=== PATIENT | female | born 1945 | race African-American/Black ===

== ENCOUNTER 2019-03-28 13:18 | Inpatient (IN) | payer OTHER ==
[~2019-03-28] VITALS: Ht 165.1 cm; Wt 79.8 kg
[~2019-03-28 13:18] MED LIST: AMARYL2 MG PO; AMBIEN 10 MG TA10 MG PO; ASPIR 8181 MG PO; CALTRATE 600 +1 EAC1 PO; COZAAR 50 MG TA50 M2 PO; CRESTOR10 MG PO; CRESTOR20 MG PO; DILTIAZEM 24HR120 M2 PO; IMDUR30 MG PO; ISORDIL10 MG PO; LASIX 20 MG TAB20 MG PO; LOSARTAN-HCTZ1 EAC1 PO; NITROGLYCERIN0.4 MG SUBLING; PANTOPRAZOLE SO40 M1 PO; VALACYCLOVIR500 MG PO; VITAMIN B-12500 MCG PO; VITAMIN B12-FO1 EAC1 PO; VITAMIN D1000 UNI2 PO
[2019-03-28 13:22] VITALS: BP 183/127
[2019-03-28 14:08] LABS: URINE BILIRUBIN NEGATIVE (Negative); URINE BLOOD NEGATIVE (Negative); URINE CLARITY CLEAR; URINE COLOR YELLOW; URINE GLUCOSE-RANDOM* 3+ (Negative); URINE KETONES NEGATIVE (Negative); URINE LEUKOCYTES NEGATIVE (Negative); URINE NITRITE NEGATIVE (Negative); URINE PROTEIN (DIPSTICK) NEGATIVE (Negative); URINE UROBILINOGEN 0.2 E.U./dl (0.2-1.0)
[2019-03-28 14:14] LABS: ABSOLUTE NEUTROPHILS 9.5 thou/uL (1.4-8.2); BASOPHILS 0.3 % (0.0-2.0); EOSINOPHILS 0.2 % (0.0-3.0); HEMATOCRIT 43.4 % (37.0-47.0); HEMOGLOBIN 13.9 gm/dL (12.0-15.0); LYMPHOCYTES 11.2 % (24.0-44.0); MCH 29.3 pg (26.0-34.0); MCV 91.6 fL (80.0-100.0); MONOCYTES 5.9 % (1.0-8.0); PLATELET COUNT 216 thou/uL (150-400); POLYS 82.4 % (36.0-66.0); RBC 4.74 mil/uL (4.20-5.00); WBC 11.5 thou/uL (4.0-11.0)
[2019-03-28 14:15] LABS: CALCIUM 9.8 mg/dL (8.5-10.1); CREATININE 1.1 mg/dL (0.6-1.0); POTASSIUM 3.4 mmol/L (3.5-5.1)
[2019-03-28 14:21] LABS: ALBUMIN 4.3 g/dL (3.4-5.0); TOTAL BILIRUBIN 0.5 mg/dL (<0.1-1.0)
[2019-03-28] MEDS ORDERED: POTASSIUM20 PO (15:56)
[2019-03-28] MEDS ORDERED: HYDROCHLOROTHIA25 M2 PO (15:57)
[2019-03-28] MEDS ORDERED: ZETIA10 MG PO (15:57)
[2019-03-28] MEDS ORDERED: JARDIANCE10 MG PO (15:58)
[2019-03-28] MEDS ORDERED: PLAVIX 75 MG TA75 M1 PO (15:59)
[2019-03-28 17:56] VITALS: BP 183/127
[2019-03-28 19:22] VITALS: BP 130/63
[2019-03-28 19:26] VITALS: BP 146/83
[2019-03-28] MEDS ORDERED: PROTONIX40 M1 PO (19:44)
[2019-03-28] MEDS ORDERED: VITAMINC500 PO (19:48)
[2019-03-29] VITALS: BP 137/66
--- NOTE | 2019-03-29 01:33 | NUR ---
ASSUMED CARE OF PT AT 1930HRS. PT IS AOX4 AND WAS ORIENTED TO THE UNIT AND THE ROOM. PT WAS ABLE TO ANSWER ALL ADMISSION RELATED QUESTIONS. PT HAS A STEADY GAIT AND IS UP AD IVONE. FAMILY WAS AT BEDSIDE BRIEFLY. ABX TREATMENT CONTINUED. VSS AND NO S/S OF ACUTE DISTRESS. WILL CONTINUE TO MONITOR.
--- NOTE | 2019-03-29 04:13 | NUR ---
THE NIGHT PROGRESSED, PT WAS ABLE TO SLEEP PART OF THE SHIFT. VS REMAINED STABLE. NO S/S OF ACUTE DISTRESS. ABX TREATMENT CONTINUED. WILL CONTINUE TO MONITOR.
[2019-03-29 05:30] VITALS: BP 137/60
[2019-03-29 05:52] LABS: HEMATOCRIT 39.2 % (37.0-47.0); HEMOGLOBIN 12.9 gm/dL (12.0-15.0); MCHC 32.9 g/dL (28.0-37.0); MCV 91.1 fL (80.0-100.0); RBC 4.3 mil/uL (4.20-5.00); RDW 15.2 % (10.5-14.5)
[2019-03-29 06:10] LABS: CALCIUM 8.9 mg/dL (8.5-10.1); CREATININE 1.1 mg/dL (0.6-1.0); POTASSIUM 3.1 mmol/L (3.5-5.1)
[2019-03-29 08:35] VITALS: BP 133/64
[2019-03-29 14:39] VITALS: BP 140/62
--- NOTE | 2019-03-29 14:46 | NUR ---
INITIAL ASSESSMENT: Received consult. SW reviewed chart and spoke with nursing and attending physician. Pt was admitted from home due to aspiration pneumonia. Pt had colonoscopy at [facility]. Awaiting cultures at this time. Pt is on IV abx. SW met with pt at bedside. Introduced role of SW. Pt is alert/orientated x 4. Pt reports she lives at home. Prior to admission, pt was independent with ADLs. No use of DME. No hx of services or SNF/Rehab. Pt's PCP is Dr. Timmy Shah. Pt's GI physician at [facility] is Dr. Cristina Adkins. Discharge plan is for pt to return home when medically stable. Pt denies having any discharge needs at this time. SW is following to assist as needed with discharge planning.
--- NOTE | 2019-03-29 15:03 | NUR ---
PT A&OX4, VSS, DENIES PAIN. LUNGS CLEAR, NO COUGH, DENIES N/V/D. PATIENT TOOK SHOWER, RESTING IN BED AND RECLINER THROUGHOUT DAY. ANTIBIOTICS RAN ORDERED, WILL CONTINUE TO MONITOR.
[2019-03-29 19:50] VITALS: BP 150/69
--- NOTE | 2019-03-30 02:07 | NUR ---
ASSUMED CARE OF PT AT 1900HRS. PT IS AOX4 AND UP AD IVONE. PT CALLS FOR HELP NEEDED. ABX TREATMENT CONTINUED. NO COMPLAINTS OF PAIN OR NAUSEA THIS SHIFT. PT WAS ABLE TO GET COMFORTABLE AND SLEEP PART OF THE SHIFT. VSS AND NO S/S OF ACUTE DISTRESS. WILL CONTINUE TO MONITOR.
[2019-03-30 05:27] LABS: HEMATOCRIT 40.1 % (37.0-47.0); MCH 29.6 pg (26.0-34.0); MCHC 32.4 g/dL (28.0-37.0); MCV 91.4 fL (80.0-100.0); RBC 4.38 mil/uL (4.20-5.00); RDW 15.2 % (10.5-14.5); WBC 7.5 thou/uL (4.0-11.0)
[2019-03-30 08:49] VITALS: BP 155/70
[2019-03-30] MEDS ORDERED: AUGMENTIN 875-1 EACH PO (09:09)
[2019-03-30 12:33] VITALS: BP 155/70
--- NOTE | 2019-03-30 15:58 | NUR ---
ANASTACIA RAMOS INDICATED THAT PT IS MEDICALLY STABLE TO DC HOME THIS DAY. PT HAS NO DC NEEDS. NO OTHER CM INTERVENTION INDICATED. CASE CLOSED.
--- NOTE | 2019-03-30 17:02 | NUR ---
PT DISCHARGED HOME/SELF CARE. PT A&OX4, VSS, DENIED PAIN. DENIES CHEST PAIN AND SOA. LUNGS CLEAR, BREATHING REG. NO SIGNS OF DISTRESS. PATIENT TOOK SHOWER INDEPENDENTLY. TOLERATED FOOD, DENIED N/V/D. DISCHARGE PRESCRIPTIONS AND PAPERWORK GIVEN, ALL BELONGINGS WITH PATIENT, IV REMOVED.
== END 2019-03-30 14:28 | disposition home or self-care (01) | DRG 195 ==
LOC: ER 13:18 → 4W 15:16 → EROBS 15:16 → 4W 19:27
PROVIDERS: Physician Assistant; ADMIT Hospitalist
DX: J18.9 Pneumonia, unspecified organism (principal); E11.9 Type 2 diabetes mellitus without complications; I10 Essential (primary) hypertension; D72.829 Elevated white blood cell count, unspecified; E78.5 Hyperlipidemia, unspecified; K21.9 Gastro-esophageal reflux disease without esophagitis; Z60.2 Problems related to living alone; G47.00 Insomnia, unspecified; Z90.710 Acquired absence of both cervix and uterus; Z95.1 Presence of aortocoronary bypass graft; Z88.8 Allergy status to other drugs, medicaments and biological substances; Z91.013 Allergy to seafood; Z87.891 Personal history of nicotine dependence; Z79.899 Other long term (current) drug therapy
CPT/HCPCS: 10040; 10045

== ENCOUNTER 2020-01-21 00:10 | Emergency (ER) | payer OTHER ==
[~2020-01-21] VITALS: Ht 157.5 cm; Wt 72.6 kg
[~2020-01-21 00:10] MED LIST changes: -DOK100 MG PO; -FLONASE 0.05%50 MCG NARES
[2020-01-21 00:57] LABS: ABSOLUTE NEUTROPHILS 6.4 thou/uL (1.4-8.2); BASOPHILS 0.3 % (0.0-2.0); EOSINOPHILS 0.8 % (0.0-3.0); HEMATOCRIT 40.3 % (37.0-47.0); HEMOGLOBIN 13.2 gm/dL (12.0-15.0); LYMPHOCYTES 18.7 % (24.0-44.0); MCH 29.9 pg (26.0-34.0); MCHC 32.8 g/dL (28.0-37.0); MCV 91.1 fL (80.0-100.0); MONOCYTES 7.4 % (1.0-8.0); PLATELET COUNT 211 thou/uL (150-400); POLYS 72.8 % (36.0-66.0); RBC 4.42 mil/uL (4.20-5.00); RDW 14.3 % (10.5-14.5); WBC 8.8 thou/uL (4.0-11.0)
[2020-01-21] MEDS ORDERED: FLONASE 0.05%50 MCG NARES (01:13)
[2020-01-21] MEDS ORDERED: DOK100 MG PO (01:14)
[2020-01-21 01:20] LABS: ALBUMIN 4.1 g/dL (3.4-5.0); ANION GAP 9 mmol/L (7-16); BUN 15 mg/dL (7-18); CALCIUM 9.1 mg/dL (8.5-10.1); CHLORIDE 100 mmol/L (98-107); CO2 28 mmol/L (21-32); CREATININE 1.1 mg/dL (0.6-1.0); GLUCOSE 115 mg/dL (74-106); LIPASE 103 U/L (73-393); SGOT 22 U/L (15-37); SGPT 23 U/L (30-65); SODIUM 137 mmol/L (136-145); TOTAL BILIRUBIN 0.4 mg/dL (0.2-1.0); TOTAL PROTEIN 7.4 g/dL (6.4-8.2); TROPONIN-I <0.06 ng/mL (<0.06)
[2020-01-21 01:23] LABS: POTASSIUM 2.8 mmol/L (3.5-5.1)
[2020-01-21 05:49] VITALS: BP 141/106
--- NOTE | 2020-01-21 08:21 | EKG ---
[facility] [place] [address] ELECTROCARDIOGRAM REPORT Name: DONAL MO Room [facility] [id number] Admission: 01/21/20 Attend Phys: Discharge: 01/21/20 Date of : 45 Report #: [id number] THIS REPORT FOR: cc: Timmy Shah MD,Timmy Dias,Bakari Ponce MD [facility] ~ THIS REPORT FOR: //name// [facility] ED Test Date: 2020-01-21 Test Time: 00:16:48 Pat Name: DONAL HELM Department: Room: Gender: F Primary Teaching Assistant: ER : 1945 Requested By: Aroldo Jenkins Order Number: [id number] MD: Bakari Dias Measurements Intervals [place] Rate: 78 P: 74 MN: 157 QRS: 55 QRSD: 102 T: -74 QT: 399 QTc: 455 Interpretive Statements Sinus rhythm Ventricular premature complex Abnormal R-wave progression, early transition Nonspecific ST and T wave abnormality Compared to ECG 01/03/2019 02:22:36 Ventricular premature complex(es) now present Electronically Signed On 01-21-2020 8:20:58 CDT by Bakari Dias [email or web address] <ELECTRONICALLY SIGNED> By: Bakari Dias MD, [facility] 01/21/20 0820 0016 0016 Bakari Dias MD, FAC /EPI
== END 2020-01-21 05:59 | disposition home or self-care (01) ==
LOC: ER 00:10
PROVIDERS: Emergency Medicine
DX: R07.89 Other chest pain (principal); E87.6 Hypokalemia; I12.9 Hypertensive chronic kidney disease with stage 1 through stage 4 chronic kidney disease, or unspecified chronic kidney disease; E11.22 Type 2 diabetes mellitus with diabetic chronic kidney disease; N18.9 Chronic kidney disease, unspecified; I25.2 Old myocardial infarction; Z90.710 Acquired absence of both cervix and uterus; Z79.899 Other long term (current) drug therapy; Z91.018 Allergy to other foods; Z90.13 Acquired absence of bilateral breasts and nipples

== ENCOUNTER → 2020-01-21 | Outpatient (CLI) | payer OTHER ==
[~2020-01-21] MED LIST changes: +AMBIEN 5 MG TABL5 M1 PO; +AUGMENTIN 875-1 EACH PO; +BENADRYL25 MG; +BRILINTA90 MG PO; +CARDIZEM CD 18180 M3 PO; +CRESTOR40 MG PO; +DAPSONE25 MG; +DOK100 MG PO; +FLONASE 0.05%50 MCG NARES; +HYDROCHLOROTHIA25 M2 PO; +IMDUR 30 MG TAB30 M1 PO; +IMDUR 60 MG TAB60 M1 PO; +JANUVIA50 MG; +JARDIANCE10 MG PO; +K-DUR 20 MEQ T20 MEQ PO; +LUBRICANT EYE15 M1 OPHTHALMIC; +PLAVIX 75 MG TA75 M1 PO; +POTASSIUM20 PO; +PRED FORTE 1% EY5 M1 OPHTHALMIC; +PROTONIX 20 MG20 M1; +PROTONIX40 M1 PO; +RANEXA500 MG PO; +ROSUVASTATIN; +ROSUVASTATIN PO; +VITAMINC500 PO; +XANAX 0.25 MG0.25 MG PO; +ZETIA10 MG PO
== END ==
LOC: NUC 11:25
PROVIDERS: ATTEND Nurse Practitioner
DX: I25.10 Atherosclerotic heart disease of native coronary artery without angina pectoris (principal)

== ENCOUNTER 2021-03-17 16:38 | Emergency (ER) | payer OTHER ==
[~2021-03-17] VITALS: Ht 165.1 cm; Wt 86.2 kg
[~2021-03-17 16:38] MED LIST changes: +DOK100 MG PO; +FLONASE 0.05%50 MCG NARES
[2021-03-17 16:59] LABS: URINE BILIRUBIN NEGATIVE (Negative); URINE BLOOD NEGATIVE (Negative); URINE CLARITY CLEAR; URINE COLOR YELLOW; URINE GLUCOSE-RANDOM* 3+ (Negative); URINE KETONES NEGATIVE (Negative); URINE LEUKOCYTES-REFLEX NEGATIVE (Negative); URINE NITRITE-REFLEX NEGATIVE (Negative); URINE PROTEIN (DIPSTICK) NEGATIVE (Negative); URINE SPECIFIC GRAVITY 1.015 (1.005-1.035); URINE UROBILINOGEN 0.2 E.U./dl (0.2-1.0)
[2021-03-17] MEDS ORDERED: BELSOMRA10 MG PO (17:16)
[2021-03-17 17:59] LABS: ABSOLUTE NEUTROPHILS 6.1 thou/uL (1.4-8.2); BASOPHILS 0.2 % (0.0-2.0); EOSINOPHILS 1.1 % (0.0-3.0); HEMATOCRIT 38.4 % (37.0-47.0); HEMOGLOBIN 12.4 gm/dL (12.0-15.0); LYMPHOCYTES 16.1 % (24.0-44.0); MCH 28.9 pg (26.0-34.0); MCHC 32.2 g/dL (28.0-37.0); MCV 89.8 fL (80.0-100.0); MONOCYTES 8.6 % (1.0-8.0); PLATELET COUNT 216 thou/uL (150-400); RBC 4.27 mil/uL (4.20-5.00); RDW 14.1 % (10.5-14.5); WBC 8.3 thou/uL (4.0-11.0)
[2021-03-17 18:06] LABS: CALCIUM 9.3 mg/dL (8.5-10.1); CREATININE 1.4 mg/dL (0.6-1.0); POTASSIUM 3.9 mmol/L (3.5-5.1)
[2021-03-17 18:13] LABS: ALBUMIN 3.6 g/dL (3.4-5.0); TOTAL BILIRUBIN 0.3 mg/dL (0.2-1.0)
[2021-03-17 19:13] VITALS: BP 144/61
[2021-03-17] MEDS ORDERED: APAP W/CODEINE1 TA2 PO ×2 (19:23→19:24)
== END 2021-03-17 19:13 | disposition home or self-care (01) ==
LOC: ER 16:38
PROVIDERS: Physician Assistant
DX: R10.31 Right lower quadrant pain (principal); R10.11 Right upper quadrant pain; I12.9 Hypertensive chronic kidney disease with stage 1 through stage 4 chronic kidney disease, or unspecified chronic kidney disease; E11.22 Type 2 diabetes mellitus with diabetic chronic kidney disease; N18.9 Chronic kidney disease, unspecified; Z90.710 Acquired absence of both cervix and uterus; Z79.899 Other long term (current) drug therapy; Z91.02 Food additives allergy status; Z91.013 Allergy to seafood